=== PATIENT | female | born 1960 | race Caucasian/White ===

== ENCOUNTER → 2016-07-25 15:26 | Outpatient (CLI) | payer BC ==
[2016-02-03 07:36] VITALS: BMI 18.8
[~2016-07-25 15:26] MED LIST: ACTIVELLA 1 MG-1 TAB PO; ADVAIR 100/501 DISK INH; BENZONATATE200 MG PO; BROVANA15 MCG/2 M INH; BUPROPION XL300 MG PO; CALCIUM CITRATE1 TAB PO; CLEOCIN HCL150 MG PO; CYCLOBENZAPRINE10 MG PO; DEXILANT30 MG PO; FISH OIL 500 MG1 CAP PO; FLUTICASONE PRO16 GM NASAL; GLUCOSAMINE HC500 MG PO; HYDROCODON-ACE1 EAC7 PO; IPRAT-ALBUT 0.5-3 ML UPD; PCE500 MG; PREFEST PO; PRILOSEC20 MG PO; PULMICORT0.5 MG/21 UPD; SINGULAIR10 MG PO; SPIRIVA18 MCG INH; SYNTHROID50 MCG PO; VENTOLIN HFA18 GM INH
[2016-07-25 15:47] LABS: BASOPHILS 0 % (0.0-2.0); EOSINOPHILS 0.1 % (0-7); HEMATOCRIT 41.8 % (36.0-48.0); IMMATURE GRANULOCYTES 0.5 % (0-5); LYMPHOCYTES 17.1 % (15-50); MCH 35.5 pg (26.0-34.0); MCHC 33.5 g/dL (31.0-37.0); MCV 106.1 fL (80.0-100.0); MEAN PLATELET VOLUME 8.6 fL (7.4-10.4); MONOCYTES 6.2 % (2-11); NEUTROPHILS 76.1 % (40-80); PLATELET COUNT 227 10x3/uL (130-400); RBC 3.94 10x6/uL (4.00-5.40)
[2016-07-25 16:13] LABS: ALBUMIN 4.1 g/dL (3.4-5.0); ALKALINE PHOSPHATASE 44 U/L (46-116); ALT (SGPT) 32 U/L (10-68); CALC OSMOLALITY 277 mosm/kg (275-300); CALCIUM 8.9 mg/dL (8.5-10.1); CARBON DIOXIDE 31.6 mmol/L (21.0-32.0); CHLORIDE - SERUM 102 mmol/L (98-107); CREATININE - SERUM 0.5 mg/dL (0.6-1.3); GLUCOSE 96 mg/dL (74-106); POTASSIUM - SERUM 3.8 mmol/L (3.5-5.1); PROTEIN - SERUM 6.6 g/dL (6.4-8.2); SODIUM 140 mmol/L (136-145); UREA NITROGEN 9 mg/dL (7-18); eGFR NON AFRICAN AMERICAN > 90 mL/min (90-120)
== END | disposition home or self-care (01) ==
LOC: D.CT 07-18 15:30 → D.LAB 07-18 16:15
PROVIDERS: Internal Medicine Gastroenterology
DX: K92.0 Hematemesis (principal); K21.9 Gastro-esophageal reflux disease without esophagitis; R10.9 Unspecified abdominal pain; R63.4 Abnormal weight loss

== ENCOUNTER → 2017-01-04 14:04 | Outpatient (CLI) | payer BC ==
[2016-02-03 07:36] VITALS: BMI 18.8
== END | disposition home or self-care (01) ==
LOC: D.RT 14:00
DX: J45.909 Unspecified asthma, uncomplicated (principal)

== ENCOUNTER → 2017-12-10 10:38 | Outpatient (CLI) | payer BC ==
[2016-02-03 07:36] VITALS: BMI 18.8
== END | disposition home or self-care (01) ==
LOC: D.RT 10:38
DX: J47.9 Bronchiectasis, uncomplicated (principal)

== ENCOUNTER → 2018-04-19 06:45 | Outpatient (CLI) | payer BC ==
[2016-02-03 07:36] VITALS: BMI 18.8
== END | disposition home or self-care (01) ==
LOC: D.MRI 04-17 09:00
DX: M84.378A Stress fracture, left toe(s), initial encounter for fracture (principal)

== ENCOUNTER → 2019-03-25 15:33 | Outpatient (CLI) | payer OTHER ==
[2016-02-03 07:36] VITALS: BMI 18.8
== END | disposition home or self-care (01) ==
LOC: D.RT 03-18 10:00
PROVIDERS: ATTEND Internal Medicine Pulmonary Disease
DX: J45.909 Unspecified asthma, uncomplicated (principal)

== ENCOUNTER → 2019-10-03 11:05 | Outpatient (CLI) | payer OTHER ==
[2016-02-03 07:36] VITALS: BMI 18.8
== END | disposition home or self-care (01) ==
LOC: D.US 11:05
PROVIDERS: ATTEND Family Medicine
DX: E03.9 Hypothyroidism, unspecified (principal)